=== PATIENT | female | born 1955 | race Caucasian/White ===

== ENCOUNTER 2019-03-03 12:06 | Observation (INO) | payer BC, MEDICAID ==
[~2019-03-03] VITALS: Ht 149.9 cm; Wt 100.6 kg
[2019-03-03] MEDS ORDERED: ASPIRIN 81 MG TABLET CHEW ONE (12:22)
--- NOTE | 2019-03-03 12:25 | NUR ---
X-RAY DELAY, RN STARTING IV, [id number]
[2019-03-03] MEDS ORDERED: ASPIRIN 81 MG TABLET CHEW PO ONE (12:30)
[2019-03-03] MEDS ORDERED: SODIUM CHLORIDE FLUSH 10ML SYR IVF ONE (12:30)
[2019-03-03 12:37] LABS: BASOPHILS # (AUTO) 0.05 x10^3/uL (0-0.1); BASOPHILS % (AUTO) 1 % (0-1); EOSINOPHILS # (AUTO) 0.16 x10^3/uL (0-0.4); EOSINOPHILS % (AUTO) 2 % (1-7); LYMPHOCYTES # (AUTO) 2.79 x10^3/uL (1-3.4); LYMPHOCYTES % (AUTO) 38 % (22-44); MD NO; MEAN CORPUSCULAR HEMOGLOBIN 30.5 pg (27.0-34.8); MEAN CORPUSCULAR HGB CONC 33.6 g/dL (32.4-35.8); MEAN CORPUSCULAR VOLUME 90.8 fL (80-100); MEAN PLATELET VOLUME 8.5 fL (7.4-10.4); MONOCYTES # (AUTO) 0.47 x10^3/uL (0.2-0.8); MONOCYTES % (AUTO) 6 % (2-9); NEUTROPHILS # (AUTO) 3.83 x10^3/uL (1.8-6.8); NEUTROPHILS % (AUTO) 53 % (42-75); PLATELET COUNT 344 x10^3/uL (130-400); RED BLOOD COUNT 4.63 x10^6/uL (3.82-5.3); RED CELL DISTRIBUTION WIDTH 14.1 % (9.6-15.2)
[2019-03-03 12:46] LABS: ALANINE AMINOTRANSFERASE 29 U/L (12-78); ALBUMIN 3.7 g/dL (3.4-5.0); ANION GAP 6 mmol/L (5-15); CALCIUM 9.2 mg/dL (8.5-10.1); CHLORIDE 108 mmol/L (98-107); CREATININE 0.88 mg/dL (0.55-1.02)
[2019-03-03 12:51] LABS: ALKALINE PHOSPHATASE 105 U/L (45-117); BILIRUBIN,TOTAL 0.4 mg/dL (0.2-1.0); TOTAL PROTEIN 8.1 g/dL (6.4-8.2); TROPONIN I < 0.015 ng/mL (0.000-0.045)
--- NOTE | 2019-03-03 13:05 | NUR ---
Pt presents for Cp to right chest, dizziness, numb face, SOB starting this AM. Pt states she has been under a lot of stress lately. Pt states CP comes and goes. REsting in bed, NAD and states pain has resided to 910.
[2019-03-03] MEDS ORDERED: NITROGLYCERIN OINT 2%, 1GM TP ONE ×2 (14:00→14:39)
[2019-03-03] MEDS ORDERED: DEXTROSE 50%, 50ML SYRINGE IVPush PRN (15:00)
[2019-03-03] MEDS ORDERED: ONDANSETRON 2MG/ML, 2ML IVPush PRN (15:00)
[2019-03-03] MEDS ORDERED: hydrALAzine 20 MG/ML, 1ML IVPush PRN (15:00)
[2019-03-03] MEDS ORDERED: NITROGLYCERIN 0.4 MG BOTTLE (25 TABS) SL PRN (15:00)
[2019-03-03] MEDS ORDERED: GLUCAGON 1 MG IM PRN (15:00)
[2019-03-03] MEDS ORDERED: DEXTROSE 4 GM TAB.CHEW PO PRN (15:00)
[2019-03-03 15:37] VITALS: BP 122/82
[2019-03-03] MEDS: INSULIN LISPRO 100 UNITS/ML, PEN SQ-INSULIN SCH ×2 (16:00→21:58)
[2019-03-03 16:35] VITALS: BP 111/67
[2019-03-03] MEDS: LIDODERM 5% PATCH TD SCH (16:41)
[2019-03-03] MEDS: HYDROCHLOROTHIAZIDE 12.5 MG CAPSULE PO SCH (16:42)
[2019-03-03] MEDS: HEPARIN 5,000 UNITS/ML, 1ML SQ SCH ×2 (16:43→21:59)
[2019-03-03 19:14] LABS: TROPONIN I < 0.015 ng/mL (0.000-0.045)
[2019-03-03 20:03] VITALS: BP 105/65
[2019-03-03] MEDS: ACETAMINOPHEN 325 MG TABLET PO PRN (20:16)
[2019-03-03 20:18] VITALS: BP 111/69
[2019-03-03] MEDS: SODIUM CHLORIDE FLUSH 10ML SYR IVF SCH (21:57)
[2019-03-03 22:31] LABS: TROPONIN I < 0.015 ng/mL (0.000-0.045)
[2019-03-04 02:04] VITALS: BP 115/53
[2019-03-04] MEDS: ACETAMINOPHEN 325 MG TABLET PO PRN ×2 (03:17→11:54)
[2019-03-04] MEDS: LEVOTHYROXINE 137 MCG TABLET PO SCH (05:54)
[2019-03-04] MEDS: ASPIRIN 325 MG TABLET EC PO SCH (05:54)
[2019-03-04] MEDS: HEPARIN 5,000 UNITS/ML, 1ML SQ SCH ×3 (05:54→17:18)
[2019-03-04 05:56] LABS: BASOPHILS # (AUTO) 0.06 x10^3/uL (0-0.1); BASOPHILS % (AUTO) 1 % (0-1); EOSINOPHILS # (AUTO) 0.19 x10^3/uL (0-0.4); EOSINOPHILS % (AUTO) 3 % (1-7); LYMPHOCYTES # (AUTO) 2.23 x10^3/uL (1-3.4); LYMPHOCYTES % (AUTO) 30 % (22-44); MD NO; MEAN CORPUSCULAR HEMOGLOBIN 29.8 pg (27.0-34.8); MEAN CORPUSCULAR HGB CONC 33.2 g/dL (32.4-35.8); MEAN CORPUSCULAR VOLUME 89.7 fL (80-100); MEAN PLATELET VOLUME 8.7 fL (7.4-10.4); MONOCYTES # (AUTO) 0.46 x10^3/uL (0.2-0.8); MONOCYTES % (AUTO) 6 % (2-9); NEUTROPHILS # (AUTO) 4.52 x10^3/uL (1.8-6.8); NEUTROPHILS % (AUTO) 61 % (42-75); PLATELET COUNT 304 x10^3/uL (130-400); RED CELL DISTRIBUTION WIDTH 14.2 % (9.6-15.2)
[2019-03-04 06:02] LABS: ANION GAP 9 mmol/L (5-15); CALCIUM 8.8 mg/dL (8.5-10.1); CHLORIDE 109 mmol/L (98-107); CREATININE 0.94 mg/dL (0.55-1.02)
[2019-03-04 06:12] LABS: THYROID STIMULATING HORMONE 0.888 mIU/L (0.358-3.740)
[2019-03-04] MEDS: INSULIN LISPRO 100 UNITS/ML, PEN SQ-INSULIN SCH ×4 (07:00→21:00)
[2019-03-04 08:04] VITALS: BP 117/74
[2019-03-04 08:17] LABS: HEMOGLOBIN A1C 6.3 % (4.2-6.3)
[2019-03-04] MEDS: SODIUM CHLORIDE FLUSH 10ML SYR IVF SCH ×2 (08:18→21:26)
[2019-03-04] MEDS ORDERED: REGADENOSON 0.4 MG/5 ML SYRINGE ONE (09:16)
[2019-03-04] MEDS ORDERED: HYDR12.59 PO (12:13)
[2019-03-04] MEDS ORDERED: LEVO137T3 PO (12:13)
[2019-03-04] MEDS ORDERED: IBUP-1223 PO (12:18)
[2019-03-04] MEDS ORDERED: CHOL5000 PO (12:18)
[2019-03-04 14:45] VITALS: BP 112/70
[2019-03-04] MEDS: LIDODERM 5% PATCH TD SCH (17:19)
[2019-03-04 17:28] LABS: CHOL/HDL RATIO 3.4; LDL/HDL RATIO 1.6 (0.5-3.0)
[2019-03-04 20:00] VITALS: BP 99/60
[2019-03-04] MEDS ORDERED: OMNIPAQUE 350 MG/ML, 100ML BOTTLE ONE (20:33)
[2019-03-04] MEDS ORDERED: ATORVASTATIN 40 MG TABLET PO SCH (21:00)
[2019-03-05 01:27] VITALS: BP 108/70
[2019-03-05] MEDS: HEPARIN 5,000 UNITS/ML, 1ML SQ SCH ×2 (01:37→08:37)
[2019-03-05] MEDS: ASPIRIN 325 MG TABLET EC PO SCH (06:05)
[2019-03-05] MEDS: ACETAMINOPHEN 325 MG TABLET PO PRN ×2 (06:06→13:57)
[2019-03-05] MEDS: LEVOTHYROXINE 137 MCG TABLET PO SCH (06:06)
[2019-03-05] MEDS: INSULIN LISPRO 100 UNITS/ML, PEN SQ-INSULIN SCH ×2 (07:00→11:00)
[2019-03-05 08:10] VITALS: BP 113/70
[2019-03-05] MEDS: HYDROCHLOROTHIAZIDE 12.5 MG CAPSULE PO SCH (08:37)
[2019-03-05] MEDS: SODIUM CHLORIDE FLUSH 10ML SYR IVF SCH (08:37)
--- NOTE | 2019-03-05 10:03 | NUR ---
REC: Regular diet with thin liquids, GERD precautions Addendum: 03/05/19 at 1004 by Mayelin MENDEZ Amended: Links added.
[2019-03-05] MEDS ORDERED: ASPI-515 PO (11:42)
[2019-03-05] MEDS ORDERED: ATOR40TA78 PO (11:42)
[2019-03-05] MEDS ORDERED: LISI5TAB7 PO (11:42)
[2019-03-05] MEDS ORDERED: METF500T27 PO (14:10)
== END 2019-03-05 15:33 | disposition home or self-care (01) ==
LOC: ED 14:30 → INTOOBSV 14:35 → EDIP 14:35 → 5SO 15:34 → DCLOUNGE 03-05 15:10
PROVIDERS: ADMIT Internal Medicine; ATTEND Internal Medicine
DX: R07.89 Other chest pain (principal); E03.9 Hypothyroidism, unspecified; E11.9 Type 2 diabetes mellitus without complications; E66.01 Morbid (severe) obesity due to excess calories; G47.33 Obstructive sleep apnea (adult) (pediatric); I11.9 Hypertensive heart disease without heart failure; Z79.899 Other long term (current) drug therapy; Z80.7 Family history of other malignant neoplasms of lymphoid, hematopoietic and related tissues; Z82.49 Family history of ischemic heart disease and other diseases of the circulatory system; Z90.710 Acquired absence of both cervix and uterus; Z91.19 Patient's noncompliance with other medical treatment and regimen; Z91.81 History of falling; R20.0 Anesthesia of skin; S06.0X9A Concussion with loss of consciousness of unspecified duration, initial encounter; W01.0XXA Fall on same level from slipping, tripping and stumbling without subsequent striking against object, initial encounter; Y93.89 Activity, other specified; Y92.89 Other specified places as the place of occurrence of the external cause; Y99.8 Other external cause status
CPT/HCPCS: 36415; 70496; 70498; 70551; 71045; 78452; 80048; 80053; 80061; 82962; 83036; 83880; 84443; 84484; 85025; 85379; 92610; 93005; 93017; 93970; 96372; 97161; 97166; 99284; A9502; C9898; G0378; J1644; J2785; Q9967

== ENCOUNTER → 2019-12-13 | Outpatient (CLI) | payer BC, MEDICAID, OTHER ==
[~2019-12-13] MED LIST: ASPI-515 PO; ATOR40TA78 PO; CHOL5000 PO; HYDR12.59 PO; IBUP-1223 PO; LEVO137T3 PO; LISI5TAB7 PO; METF500T27 PO
== END | disposition home or self-care (01) ==
LOC: CFH 11:24
PROVIDERS: ATTEND Nurse Practitioner
DX: K76.0 Fatty (change of) liver, not elsewhere classified (principal); Z90.49 Acquired absence of other specified parts of digestive tract
CPT/HCPCS: 76700

== ENCOUNTER → 2020-02-16 | Outpatient (CLI) | payer OTHER | END | disposition home or self-care (01) | LOC: CVU 13:04 | PROVIDERS: ATTEND Internal Medicine Cardiovascular Disease | DX: R07.89 Other chest pain (principal); R06.02 Shortness of breath | CPT/HCPCS: 93306 ==

== ENCOUNTER 2020-06-30 12:01 | Outpatient (CLI) | payer OTHER ==
[2020-06-30 13:18] LABS: ANION GAP 4 mmol/L (5-15); CHLORIDE 108 mmol/L (98-107); CREATININE 0.86 mg/dL (0.55-1.02)
== END 2020-06-30 23:59 | disposition home or self-care (01) ==
LOC: STAR 12:01
PROVIDERS: ATTEND Anesthesiology
DX: Z01.818 Encounter for other preprocedural examination (principal); Z01.89 Encounter for other specified special examinations; R79.1 Abnormal coagulation profile
CPT/HCPCS: 36415; 80048; 93005

== ENCOUNTER → 2020-08-09 | Outpatient (CLI) | payer MEDICAID | END | disposition home or self-care (01) | LOC: CFH 14:34 | PROVIDERS: ATTEND Family Medicine | DX: N60.02 Solitary cyst of left breast (principal); R92.8 Other abnormal and inconclusive findings on diagnostic imaging of breast | CPT/HCPCS: 76642; 77066; G0279 ==